=== PATIENT | male | born 1985 | race Caucasian/White ===

== ENCOUNTER 2018-05-26 17:37 | Emergency (ER) | payer SELFPAY ==
[2018-05-26] MEDS ORDERED: AZITHROMYCIN INJ 500 MG VIAL IV ONE (18:25)
[2018-05-26] MEDS ORDERED: CEFTRIAXONE 1 GM/D5W RTU 1 GM/50 ML RTUPB IV ONE (18:25)
[2018-05-26] MEDS ORDERED: NORMAL SALINE 1000 ML 1,000 ML IV ONE (18:26)
--- NOTE | 2018-05-26 18:28 | ER Document Report ---
ED Medical Screen (RME) - General Chief Complaint: Breathing Difficulty Stated Complaint: RESPIRATORY ISSUES Time Seen by Provider: 05/26/18 18:21 Notes: RAPID MEDICAL EVALUATION DISCLOSURE I have seen this patient as part of a Rapid Medical Evaluation and, if applicable, placed any initially appropriate orders. The patient will be seen and fully evaluated, including a full history and physical exam, by a provider ( in Main ED or Fast Track) when a room becomes available. 32-year-old male PMH pneumonia here with complaints of chills and sweats ongoing for the past week and now 2 days of cough productive yellow sputum shortness of breath chest tightness wheezing. Last night he had a fever of 100.9F. He has been using his inhaler with minimal relief. He does smoke 1 pack of cigarettes daily. He has a history of pneumonia requiring hospitalization and the last episode was in 2017 "because I went septic". EXAM Minimally diffuse coarse breath sounds bilaterally Normal aeration No wheezing auscultated Tachypneic, mid 20s Mildly tachycardic NOTE Hypoxic 90% TRAVEL OUTSIDE OF THE [place] IN LAST 30 DAYS: No - Related Data Allergies/Adverse Reactions: codeine Allergy (Verified 05/26/18 17:41) Past Medical History - Social History Chew tobacco use (# tins/day): No Drug Abuse: None - Past Medical History Cardiac Medical History: Reports: Hx Hypertension Pulmonary Medical History: Reports: Hx Asthma Neurological Medical History: Reports: Hx Migraine Endocrine Medical History: Denies: Hx Diabetes Mellitus Type 1, Hx Diabetes Mellitus Type 2 Renal/ Medical History: Denies: Hx Peritoneal Dialysis GI Medical History: Reports: Hx Irritable Bowel Musculoskeltal Medical History: Reports Hx Musculoskeletal Trauma - tendonitis carpal tunnel broken left wrist Psychiatric Medical History: Reports: Hx Bipolar Disorder, Hx Depression Traumatic Medical History: Reports: Hx Fractures Past Surgical History: Reports: Hx Orthopedic Surgery - left arm, Hx Umbilical Hernia - Immunizations Immunizations up to date: Yes Hx Diphtheria, Pertussis, Tetanus Vaccination: Yes Physical Exam - Vital signs Vitals: Temp Pulse Resp BP Pulse Ox 99.7 F 99 24 H 144/80 H 90 L 05/26/18 17:46 05/26/18 17:46 05/26/18 17:46 05/26/18 17:46 05/26/18 17:46 Course - Vital Signs Vital signs: Temp Pulse Resp BP Pulse Ox 99.7 F 99 24 H 144/80 H 90 L 05/26/18 17:46 05/26/18 17:46 05/26/18 17:46 05/26/18 17:46 05/26/18 17:46
[2018-05-26 19:10] LABS: ABSOLUTE BASOPHILS # (AUTO) 0.1 10^3/uL (0.0-0.2); ABSOLUTE EOSINOPHILS # (AUTO) 0.2 10^3/uL (0.0-0.6); ABSOLUTE LYMPHOCYTES (AUTO) 2.1 10^3/uL (0.5-4.7); ABSOLUTE MONOCYTES (AUTO) 0.5 10^3/uL (0.1-1.4); ABSOLUTE NEUT (AUTO) 12.3 10^3/uL (1.7-8.2); BASOPHILS % (AUTO) 0.9 % (0-2); HEMATOCRIT 43.7 % (37.9-51.0); HEMOGLOBIN 15.2 g/dL (13.5-17.0); LYMPHOCYTES % (AUTO) 13.7 % (13-45); MEAN CORPUSCULAR HGB CONC 34.8 g/dL (32.0-36.0); MEAN CORPUSCULAR VOLUME 86 fl (80-97); MONOCYTES % (AUTO) 3.5 % (3-13); PLATELET COUNT 236 10^3/uL (150-450); RED BLOOD COUNT 5.07 10^6/uL (4.35-5.55); RED CELL DISTRIBUTION WIDTH 13.4 % (11.5-14.0); SEGMENTED NEUTROPHILS % (AUTO) 80.9 % (42-78); TOTAL CELLS COUNTED % (AUTO) 100 %; WHITE BLOOD COUNT 15.2 10^3/uL (4.0-10.5)
--- NOTE | 2018-05-26 19:14 | RADIOLOGY REPORT (SQ) ---
EXAM DESCRIPTION: CHEST 2 VIEWS COMPLETED DATE/TIME: 05/26/2018 6:58 pm REASON FOR STUDY: hypoxic TACHYCARDIC hx pneumonia COMPARISON: None. EXAM PARAMETERS: NUMBER OF VIEWS: two views TECHNIQUE: Digital Frontal and Lateral radiographic views of the chest acquired. RADIATION DOSE: NA LIMITATIONS: none FINDINGS: LUNGS AND PLEURA: Mild pulmonary edema. MEDIASTINUM AND HILAR STRUCTURES: No masses or contour abnormalities. HEART AND VASCULAR STRUCTURES: Heart normal size. No evidence for failure. BONES: No acute findings. HARDWARE: None in the chest. OTHER: No other significant finding. IMPRESSION: Mild pulmonary edema. No localized pneumonia is appreciated. TECHNICAL DOCUMENTATION: JOB ID: [id number] [employer]- All Rights Reserved Reading location - IP/workstation name: [email or web address]
[2018-05-26] MEDS ORDERED: IPRATROPIUM/ALBUTEROL 0.5-2.5 MG/3 ML AMPUL NEB ONE (19:17)
[2018-05-26 20:29] LABS: ALANINE AMINOTRANSFERASE 58 U/L (21-72); ALBUMIN 3.8 g/dL (3.5-5.0); ALKALINE PHOSPHATASE 105 U/L (38-126); ANION GAP 9 (5-19); ASPARTATE AMINO TRANSFERASE 63 U/L (17-59); BILIRUBIN,DIRECT 0.5 mg/dL (0.0-0.4); BILIRUBIN,TOTAL 0.6 mg/dL (0.2-1.3); BLOOD UREA NITROGEN 9 mg/dL (7-20); CARBON DIOXIDE 30 mmol/L (22-30); CHLORIDE 100 mmol/L (98-107); GLUCOSE 99 mg/dL (75-110); POTASSIUM 3.1 mmol/L (3.6-5.0); TOTAL PROTEIN 6.6 g/dL (6.3-8.2)
[2018-05-26 20:30] LABS: CREATINE KINASE MB 1.49 ng/mL (<4.55)
[2018-05-26 20:35] LABS: TROPONIN I < 0.012 ng/mL
[2018-05-26] MEDS ORDERED: POTASSIUM CHLORIDE 10 MEQ CAPSULE.ER PO ONE (20:49)
[2018-05-26] MEDS ORDERED: POTASSI CL 20 MEQ/50 ML RIDER 20 MEQ/50 ML RTUPB IV ONE (20:49)
--- NOTE | 2018-05-26 20:54 | ER Document Report ---
ED Respiratory Problem - General Chief Complaint: Breathing Difficulty Stated Complaint: RESPIRATORY ISSUES Time Seen by Provider: 05/26/18 18:21 Mode of Arrival: Ambulatory Information source: Parent Notes: Chief complaint: Shortness of breath History of complain:( obtained from----patient) 32 years old male with a history of pneumonia, asthma, has been taking albuterol whole day, presents today with difficulty in breathing and wheezing for the last couple of days. Denies any fever chills chest pain. Denies any other constitutional symptoms. Onset: As above Duration: Gradual last 2 days Severity: Mild to moderate Quality: Not applicable Context: Asthma Exacerbating factor and relieving factors: Excision REVIEW OF SYSTEMS: CONSTITUTIONAL : Denies fever, chills, or sweats. Denies recent illness. EENT: Denies eye, ear, throat, or mouth pain or symptoms. Denies nasal or sinus congestion or discharge. Denies throat, tongue, or mouth swelling or difficulty swallowing. CARDIOVASCULAR: Denies chest pain. Denies palpitations or racing or irregular heart beat. Denies ankle edema. RESPIRATORY: Denies cough, cold, or chest congestion. Denies shortness of breath, difficulty breathing, or wheezing. GASTROINTESTINAL: Denies distention. Denies nausea, vomiting, or diarrhea. Denies blood in vomitus, stools, or per rectum. Denies black, tarry stools. Denies constipation. GENITOURINARY: Denies difficulty urinating, painful urination, burning, frequency, blood in urine, or discharge. FEMALE GENITOURINARY: Denies vaginal bleeding, heavy or abnormal periods, irregular periods. Denies vaginal discharge or odor. MUSCULOSKELETAL: Denies back or neck pain or stiffness. Denies joint pain or swelling. SKIN: Denies rash, lesions or sores. HEMATOLOGIC : Denies easy bruising or bleeding. LYMPHATIC: Denies swollen, enlarged glands. NEUROLOGICAL: Denies confusion or altered mental status. Denies passing out or loss of consciousness. Denies dizziness or lightheadedness. Denies headache. Denies weakness or paralysis or loss of use of either side. Denies problems with gait or speech. Denies sensory loss, numbness, or tingling. Denies seizures. PSYCHIATRIC: Denies anxiety or stress. Denies depression, suicidal ideation, or homicidal ideation. ALL OTHER SYSTEMS REVIEWED AND NEGATIVE. PHYSICAL EXAMINATION: GENERAL: Well-appearing, well-nourished and in no acute distress. HEAD: Atraumatic, normocephalic. EYES: Pupils equal round and reactive to light, extraocular movements intact, conjunctiva are normal. ENT: Nares patent, oropharynx clear without exudates. Moist mucous membranes. NECK: Normal range of motion, supple without lymphadenopathy LUNGS: Breath sounds clear to auscultation bilaterally and equal. Diffuse bilateral mild to moderate wheezing HEART: Regular rate and rhythm without murmurs ABDOMEN: Soft, nontender, nondistended abdomen. No guarding, no rebound. No masses appreciated. Examination of genitals-deferred Musculoskeletal: Normal range of motion, no pitting or edema. No cyanosis. NEUROLOGICAL: Cranial nerves grossly intact. Normal speech, normal gait. Normal sensory, motor exams PSYCH: Normal mood, normal affect. SKIN: Warm, Dry, normal turgor, no rashes or lesions noted. Dictation was performed using [employer] voice recognition software TRAVEL OUTSIDE OF THE [place] IN LAST 30 DAYS: No - Related Data Allergies/Adverse Reactions: codeine Allergy (Verified 05/26/18 17:41) Past Medical History - General Information source: Patient - Social History Smoking Status: Current Every Day Smoker Chew tobacco use (# tins/day): No Drug Abuse: None Family History: Arthritis, CAD, Hyperlipidemia, Hypertension, Other - migraines mom and sister Patient has suicidal ideation: No Patient has homicidal ideation: No - Past Medical History Cardiac Medical History: Reports: Hx Hypertension Pulmonary Medical History: Reports: Hx Asthma Neurological Medical History: Reports: Hx Migraine Endocrine Medical History: Denies: Hx Diabetes Mellitus Type 1, Hx Diabetes Mellitus Type 2 Renal/ Medical History: Denies: Hx Peritoneal Dialysis GI Medical History: Reports: Hx Irritable Bowel Musculoskeltal Medical History: Reports Hx Musculoskeletal Trauma - tendonitis carpal tunnel broken left wrist Psychiatric Medical History: Reports: Hx Bipolar Disorder, Hx Depression Traumatic Medical History: Reports: Hx Fractures Past Surgical History: Reports: Hx Orthopedic Surgery - left arm, Hx Umbilical Hernia - Immunizations Immunizations up to date: Yes Hx Diphtheria, Pertussis, Tetanus Vaccination: Yes Review of Systems - Review of Systems Notes: Dictated Physical Exam - Vital signs Vitals: Temp Pulse Resp BP Pulse Ox 99.7 F 99 24 H 144/80 H 90 L 05/26/18 17:46 05/26/18 17:46 05/26/18 17:46 05/26/18 17:46 05/26/18 17:46 - Notes Notes: Dictated Course - Re-evaluation Re-evalutation: 05/26/18 22:27 Patient was very noncompliant. Angry, would not take his potassium, he ripped off the IV lines and said that his problem is lungs I do not need potassium and walked out. In spite of informing him that it is dangerous for him to go because he is in pulmonary edema need appropriate treatment and admission to the hospital. He is very alert oriented 3. - Vital Signs Vital signs: Temp Pulse Resp BP Pulse Ox 99.0 F 99 22 H 122/66 92 05/26/18 21:16 05/26/18 17:46 05/26/18 20:01 05/26/18 20:01 05/26/18 20:01 - Laboratory Result Diagrams: 05/26/18 18:35 05/26/18 19:33 Laboratory results interpreted by me: 05/26/18 05/26/18 05/26/18 18:35 18:35 19:33 WBC 15.2 H Seg Neutrophils % 80.9 H Absolute Neutrophils 12.3 H Potassium 3.1 L Creatinine 0.50 L Lactic Acid 2.6 H Direct Bilirubin 0.5 H AST 63 H - Diagnostic Test Radiology reviewed: Reports reviewed - Chest x-ray showed a butterfly type of infiltration the lung suggestive for pulmonary edema. Discharge - Discharge Clinical Impression: Acute pulmonary edema, Hypokalemia Congestive heart failure Qualifiers: Heart failure type: systolic Heart failure chronicity: acute Qualified Code(s) : I50.21 - Acute systolic (congestive) heart failure Disposition: AGAINST MEDICAL ADVICE
[2018-05-26] MEDS ORDERED: FUROSEMIDE INJ/PF 20 MG/2 ML SDV IV ONE (22:24)
[2018-05-26 22:28] VITALS: BP 126/73
== END 2018-05-26 22:31 | disposition left against medical advice (07) ==
LOC: ER 17:37
DX: I11.0 Hypertensive heart disease with heart failure (principal); I50.21 Acute systolic (congestive) heart failure; E87.6 Hypokalemia; F17.200 Nicotine dependence, unspecified, uncomplicated; J45.909 Unspecified asthma, uncomplicated; Z79.899 Other long term (current) drug therapy; Z87.01 Personal history of pneumonia (recurrent); Z88.5 Allergy status to narcotic agent
CPT/HCPCS: 94640; 99285; 96365; 96367; 36415; 87040; 82553; 85025; 80053; 84484; 83605; 83880; 71046; J3480; J7030; J0456; J0696; J7620

== ENCOUNTER 2018-10-23 20:06 | Emergency (ER) | payer OTHER ==
[2018-10-23 20:14] VITALS: BP 154/92
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
[2018-10-23] MEDS ORDERED: IBUPROFEN 600 MG TABLET PO ONE (22:21)
[2018-10-23] MEDS ORDERED: ACETAMINOPHEN 325 MG TABLET PO ONE (22:22)
[2018-10-23] MEDS ORDERED: LIDOCAINE 5% (700 MG) TRANSDERMAL ADH..PATCH TP ONE (22:22)
[2018-10-23] MEDS ORDERED: METHOCARBAMOL 750 MG TABLET PO ONE (22:26)
== END 2018-10-23 22:58 | disposition home or self-care (01) ==
LOC: ER 20:06
DX: M54.9 Dorsalgia, unspecified (principal); M54.2 Cervicalgia; M54.5 Low back pain; V87.7XXA Person injured in collision between other specified motor vehicles (traffic), initial encounter; R51 Headache; F17.200 Nicotine dependence, unspecified, uncomplicated; F10.10 Alcohol abuse, uncomplicated; I10 Essential (primary) hypertension; J45.909 Unspecified asthma, uncomplicated
CPT/HCPCS: 99284; 72110; 70450; 72125; J3490